=== PATIENT | female | born 1960 | race Caucasian/White ===

== ENCOUNTER 2020-03-23 16:55 | Emergency (ER) | payer OTHER ==
[~2020-03-23] VITALS: Ht 157.5 cm; Wt 54.4 kg
[2020-03-23 17:16] LABS: URINE BILIRUBIN NEGATIVE (Negative); URINE BLOOD NEGATIVE (Negative); URINE CLARITY CLEAR; URINE COLOR YELLOW; URINE GLUCOSE-RANDOM NEGATIVE (Negative); URINE KETONES NEGATIVE (Negative); URINE LEUKOCYTES-REFLEX 1+ (Negative); URINE NITRITE-REFLEX NEGATIVE (Negative); URINE PROTEIN NEGATIVE (Negative); URINE SPECIFIC GRAVITY >= 1.030 (1.005-1.030); URINE UROBILINOGEN 0.2 E.U./dl (0.2-1.0)
[2020-03-23] MEDS ORDERED: IBUPROFEN 600600 M1 PO (17:21)
[2020-03-23] MEDS ORDERED: CELEBREX 200 M200 M1 PO (17:21)
[2020-03-23] MEDS ORDERED: SYNTHROID100 MC1 PO (17:22)
[2020-03-23] MEDS ORDERED: B12INJ IM (17:22)
[2020-03-23] MEDS ORDERED: VOLTAREN100 GM TOP (17:23)
[2020-03-23] MEDS ORDERED: NEXIUM20 M1 PO (17:24)
[2020-03-23] MEDS ORDERED: CYMBALTA20 MG PO (17:24)
[2020-03-23] MEDS ORDERED: TRAMADOL 50 MG50 MG PO (17:25)
[2020-03-23] MEDS ORDERED: NEURONTIN600 MG PO (17:25)
[2020-03-23 17:26] LABS: BACTERIA-REFLEX 1-9 Few /HPF (None Seen); CASTS None Seen /LPF (None Seen); CRYSTALS None Seen /LPF (None Seen); SQUAMOUS 0-3 Few /LPF (0-3); URINE RBC 0-2 Rare /HPF (0-2); URINE WBC-REFLEX 6-15 Few /HPF (0-5)
[2020-03-23] MEDS ORDERED: METHOCARBAMOL500 M2 PO (17:26)
[2020-03-23 17:45] LABS: ABSOLUTE LYMPHOCYTES 2.3 thou/uL (0.8-5.3); ABSOLUTE MONOCYTES 0.6 thou/uL (0.0-1.2); ABSOLUTE NEUTROPHILS 3.5 thou/uL (1.6-8.1); BASOPHILS 0.5 %; EOSINOPHILS 0.4 %; HEMATOCRIT 36.5 % (37.0-47.0); HEMOGLOBIN 12.6 gm/dL (12.0-15.0); LYMPHOCYTES 35.5 %; MCH 34.6 pg (26.0-34.0); MCHC 34.6 g/dL (28.0-37.0); MCV 100.2 fL (80.0-100.0); MONOCYTES 9.1 %; MPV 7.4 fl. (7.2-11.1); NUCLEATED RBCS 0 /100WBC; PLATELET COUNT* 226 thou/uL (150-400); POLYS 54.5 %; RBC 3.64 mil/uL (4.20-5.00); RDW-CV 13.4 % (10.5-14.5); WBC 6.4 thou/uL (4.0-11.0)
[2020-03-23 17:55] LABS: CREATININE 1.1 mg/dL (0.6-1.3); POTASSIUM 3.8 mmol/L (3.5-5.1)
[2020-03-23 17:59] LABS: ALBUMIN 3.6 g/dL (3.4-5.0); TOTAL BILIRUBIN 0.3 mg/dL (<0.1-1.0)
[2020-03-23] MEDS ORDERED: MACROBID 100 M100 M2 PO (19:09)
[2020-03-23] MEDS ORDERED: CITRATE OF MAG296 M1 PO (19:09)
[2020-03-23] MEDS ORDERED: ONDANSETRON HCL4 M2 PO (19:09)
[2020-03-23] MEDS ORDERED: PERCOCET PO (20:46)
[2020-03-23 21:13] VITALS: BP 144/75
--- NOTE | 2020-03-24 11:19 | EKG ---
[place] [address] ELECTROCARDIOGRAM REPORT Name: MOUNA MONTES Room: [facility] ([place], [place])#: [id number] Admission: 03/23/20 Attend Phys: Discharge: 03/23/20 Date of : 56 Date of Service: 03/23/20 1735 Report #: [id number] THIS REPORT FOR: //name// [facility] ED Test Date: 2020-03-23 Test Time: 17:35:13 Pat Name: MOUNA MONTES Department: Room: Gender: F Permit Coordinator: [facility] : 1960 Requested By: Nisreen Bullock Order Number: [id number] MD: Stevo Arauz Measurements Intervals [place] Rate: 69 P: 47 TX: 146 QRS: -6 QRSD: 92 T: 26 QT: 397 QTc: 426 Interpretive Statements Sinus rhythm No previous ECG available for comparison Electronically Signed On 03-24-2020 11:19:21 CDT by Stevo Arauz [email or web address] <ELECTRONICALLY SIGNED> By: Stevo Arauz MD, [facility] 03/24/20 1119 D: [id number] Stevo Arauz MD, FACC /EPI
== END 2020-03-23 21:14 | disposition home or self-care (01) ==
LOC: M.ERS 16:55
PROVIDERS: Nurse Practitioner Family
DX: N20.0 Calculus of kidney (principal); N39.0 Urinary tract infection, site not specified; K59.00 Constipation, unspecified; Z88.2 Allergy status to sulfonamides; Z88.0 Allergy status to penicillin

== ENCOUNTER → 2020-11-10 | Outpatient (CLI) | payer OTHER ==
[~2020-11-10] MED LIST: B12INJ IM; CELEBREX 200 M200 M1 PO; CITRATE OF MAG296 M1 PO; CYMBALTA20 MG PO; IBUPROFEN 600600 M1 PO; MACROBID 100 M100 M2 PO; METHOCARBAMOL500 M2 PO; NEURONTIN600 MG PO; NEXIUM20 M1 PO; ONDANSETRON HCL4 M2 PO; PERCOCET PO; SYNTHROID100 MC1 PO; TRAMADOL 50 MG50 MG PO; VOLTAREN100 GM TOP
== END ==
LOC: M.CT 15:00
PROVIDERS: ATTEND Registered Nurse Diabetes Educator
DX: N20.0 Calculus of kidney (principal); R11.0 Nausea; K59.09 Other constipation; R19.5 Other fecal abnormalities; M47.816 Spondylosis without myelopathy or radiculopathy, lumbar region